=== PATIENT | female | born 1950 | race Caucasian/White ===

== ENCOUNTER 2017-12-23 22:30 | Emergency (ER) | payer OTHER ==
[2017-12-23 22:30] VITALS: BMI 39.7
--- NOTE | 2017-12-23 22:43 | C.PDOC ---
History Of Present Illness 67 year old female presents to the Er with a complaint of a sharp/stabbing abdominal pain and nausea with increasing eruption after eating. Denies fever or chills. Time Seen by Provider: 12/23/17 22:42 Chief Complaint (Nursing): Abdominal Pain History Per: Patient History/Exam Limitations: no limitations Onset/Duration Of Symptoms: Hrs Current Symptoms Are (Timing): Still Present Severity: Moderate Pain Scale Rating Of: 4 Location Of Pain/Discomfort: Diffuse Radiation Of Pain To:: None Quality Of Discomfort: Sharp, Stabbing Associated Symptoms: Nausea. denies: Fever, Chills Exacerbating Factors: None Alleviating Factors: None Recent travel outside of the [place]: No Abnormal Vaginal Bleeding: No Past Medical History Reviewed: Historical Data, Nursing Documentation, Vital Signs Vital Signs: Last Vital Signs Temp 97.5 F L 12/23/17 22:31 Pulse 63 12/23/17 22:31 Resp 24 12/23/17 22:31 BP 119/70 12/23/17 22:31 Pulse Ox 100 12/23/17 22:31 - Medical History PMH: Diabetes, HTN, Hypercholesterolemia Denies: Chronic Kidney Disease Surgical History: Endoscopy, Hernia Repair - [facility] Procedures BREAST DX PROCEDURE NEC (09/17/13) COLONOSCOPY (01/14/13) CORNEAL REPAIR NEC (07/16/13) PERCUTAN NEEDLE BIOPSY OF BREAST (09/17/13) PTERYGIUM EXCISION NEC (07/16/13) X-RAY NEC AND NOS (09/17/13) Family History: States: No Known Family Hx - Social History Hx Tobacco Use: No Hx Alcohol Use: No Hx Substance Use: No - Immunization History Hx Tetanus Toxoid Vaccination: No Hx Influenza Vaccination: No Hx Pneumococcal Vaccination: No Review Of Systems Constitutional: Negative for: Fever, Chills Cardiovascular: Negative for: Chest Pain, Palpitations Respiratory: Negative for: Cough, Shortness of Breath Gastrointestinal: Positive for: Nausea, Abdominal Pain Neurological: Negative for: Weakness, Numbness Physical Exam - Physical Exam Appears: Non-toxic Skin: Warm, Dry Head: Normacephalic Oral Mucosa: Moist Chest: Symmetrical, No Tenderness Cardiovascular: Rhythm Regular Respiratory: No Rales, No Rhonchi, No Wheezing Gastrointestinal/Abdominal: Soft, Tenderness (Mildly diffuse), Distention, No Guarding, No Rebound, Other (Obese) Back: No CVA Tenderness Neurological/Psych: Oriented x3 ED Course And Treatment - Laboratory Results Result Diagrams: 12/23/17 23:04 12/23/17 23:04 ECG: Interpreted By Me, Viewed By Me ECG Rhythm: Sinus Rhythm (64), 1st Degree HB, Nonspecific Changes O2 Sat by Pulse Oximetry: 100 (Room air) Pulse Ox Interpretation: Normal Progress Note: EKG, blood work, and urinalysis ordered. Protonix, zofran, and IV fluids administered. Reevaluation Time: 02:07 Reassessment Condition: Improved Disposition Counseled Patient/Family Regarding: Studies Performed, Diagnosis, Need For Followup, Rx Given - Disposition Referrals: Mihir Baker MD [Staff Provider] - Disposition: HOME/ ROUTINE Disposition Time: 22:43 Condition: FAIR Additional Instructions: Please follow up with dr baker and soil analyst re: ovarian cyst/lesion Prescriptions: Ondansetron ODT [Zofran ODT] 1 odt PO BID PRN #6 odt PRN Reason: Nausea/Vomiting Polyethylene Glycol 3350 [Miralax] 17 gm PO DAILY #270 ml Instructions: Acute Abdomen (Belly Pain), Adult (DC), Constipation, Adult (DC), Ovarian Cyst (DC) Forms: Note (Macanese) Print Language: BRITISH - Clinical Impression Clinical Impression: Abdominal pain, Ovarian cyst, Constipation - Scribe Statement The provider has reviewed the documentation as recorded by the Scribe Leighton Davies All medical record entries made by the Scribe were at my direction and personally dictated by me. I have reviewed the chart and agree that the record accurately reflects my personal performance of the history, physical exam, medical decision making, and the department course for this patient. I have also personally directed, reviewed, and agree with the discharge instructions and disposition.
[2017-12-23] MEDS ORDERED: Sodium Chloride 0.9% 1,000 ML IV ONE (22:53)
[2017-12-23] MEDS ORDERED: Sodium Chloride 0.9% 1,000 ML ONE (23:01)
[2017-12-23 23:07] LABS: BASO % 0.5 % (0.0-2.0); EOS # 0.1 K/uL (0.0-0.7); EOS % 1.9 % (0.0-4.0); LYMPH # 2.7 K/uL (1.0-4.3); LYMPH % 35.1 % (20.0-40.0); MEAN CELL VOLUME 84.7 fL (81.0-99.0); MEAN CORPUSCULAR HEMOGLOBIN 28.7 pg (27.0-31.0); MEAN CORPUSCULAR HGB CONC 33.8 g/dL (33.0-37.0); MEAN PLATELET VOLUME 8.4 fL (7.2-11.7); MONO # 0.6 K/uL (0.0-0.8); MONO % 7.5 % (0.0-10.0); NEUT # 4.3 K/uL (1.8-7.0); RBC 4.53 Mil/uL (3.80-5.20); RED CELL DISTRIBUTION WIDTH 13.8 % (11.5-14.5); WHITE BLOOD COUNT 7.8 K/uL (4.8-10.8)
[2017-12-23 23:15] LABS: INR 1.1
[2017-12-23 23:18] LABS: ALB/GLOB RATIO 1.2 (1.0-2.1); ALBUMIN 4.1 g/dL (3.5-5.0); ALT/SGPT 19 U/L (9-52); AST/SGOT 21 U/L (14-36); BLOOD UREA NITROGEN 13 mg/dL (7-17); CALCIUM 9.2 mg/dl (8.6-10.4); GFR NON-AFRICAN AMERICAN > 60; LIPASE 78 U/L (23-300)
[2017-12-23 23:49] LABS: SQUAMOUS EPITHIAL 2 /hpf (0-5); URINE AMORPHOUS SEDIMENT FEW /ul (<OCC); URINE BACTERIA OCC (<OCC); URINE BILIRUBIN NEGATIVE (NEGATIVE); URINE BLOOD NEGATIVE (NEGATIVE); URINE CLARITY Hazy (Clear); URINE COLOR Yellow (YELLOW); URINE GLUCOSE (UA) NORMAL (Normal); URINE LEUKOCYTE ESTERASE NEG Leu/uL (Negative); URINE PROTEIN NEGATIVE (NEGATIVE); URINE UROBILINOGEN NORMAL mg/dL (0.2-1.0)
[2017-12-24] MEDS ORDERED: Iodixanol 320 MG/ML 100 ML BOTTLE IV ONE (00:26)
[2017-12-24 01:19] VITALS: RESP 20
[2017-12-24 02:29] VITALS: BP 113/67; PULSE 86; TEMP 97.9; O2SAT 95
--- NOTE | 2017-12-24 12:21 | CARD ---
APPROVED REPORT Date of service: 12/23/2017 EKG Measurement Heart [id number] <Conclusion> Sinus rhythm with sinus arrhythmia with 1st degree AV block Otherwise normal ECG
--- NOTE | 2017-12-24 13:47 | CT ---
Date of service: 12/24/2017 PROCEDURE: CT Abdomen and Pelvis with contrast HISTORY: abd pain COMPARISON: Abdominal ultrasound performed 04/18/17 TECHNIQUE: Contrast dose: 100 mL Visipaque 320 Radiation dose: Total exam DLP = 1154.16 mGy-cm. This CT exam was performed using one or more of the following dose reduction techniques: Automated exposure control, adjustment of the mA and/or kV according to patient size, and/or use of iterative reconstruction technique. FINDINGS: LOWER THORAX: Mild bibasilar atelectasis. No visible pleural effusion or pneumothorax. Partially imaged probable ascending aortic aneurysm measuring approximately 4.7 cm in transverse dimension. LIVER: Unremarkable. GALLBLADDER AND BILE DUCTS: Gallbladder distension. No calcified gallstones identified. PANCREAS: Fatty atrophy of the pancreas. SPLEEN: 9 mm probable splenule. Otherwise unremarkable. ADRENALS: Unremarkable. KIDNEYS AND URETERS: The kidneys enhance symmetrically. No hydronephrosis or obstructing calculus identified. VASCULATURE: No aortic aneurysm. Minimal atherosclerotic calcification present. BOWEL: Stomach is nondistended. Lack of oral contrast limits evaluation for bowel pathology. Bowel loops appear within normal limits of caliber without evidence of obstruction. Mild constipation. APPENDIX: The appendix appears within normal limits of caliber. No secondary signs of acute appendicitis. PERITONEUM: No significant free fluid. No definite free air. LYMPH NODES: No bulky adenopathy identified. BLADDER: Unremarkable. REPRODUCTIVE: The uterus is absent. BONES: Osseous demineralization. Degenerative changes. OTHER FINDINGS: Fat containing ventral hernia. 5.9 x 2.7 cm lobular low density lesion in the right lower quadrant, of unclear origin. IMPRESSION: 5.9 x 2.7 cm lobulated low-density lesion appears cystic in the right lower quadrant of unclear origin. Comparison with prior outside imaging recommended if available. Further evaluation with ultrasound and/or MRI may be considered. Partially imaged aneurysmal dilatation of the ascending aorta. Gallbladder distension. No calcified gallstones identified. Hysterectomy. Fat containing ventral wall hernia. Mild constipation. Additional findings as above. Preliminary impression was provided by [employer]. Study marked for PA review.
== END 2017-12-24 02:30 | disposition home or self-care (01) ==
LOC: C.ER 22:30
DX: N83.209 Unspecified ovarian cyst, unspecified side (principal); K59.00 Constipation, unspecified; R10.9 Unspecified abdominal pain
CPT/HCPCS: 74177; 80053; 81001; 83690; 85025; 85610; 85730; 93005; 96361; 96374; 96375; 99285; C9113; J2405; J7030; Q9967